=== PATIENT | male | born 1945 ===

== ENCOUNTER 2023-01-09 15:50 | Emergency (ER) | payer OTHER, SELFPAY ==
[2023-01-09] VITALS (22 sets, daily range): BP systolic 109–172; BP diastolic 61–74; PULSE 60–72; RESP 6–27; TEMP 36.4–36.6; O2SAT 95–100; BMI 27.4
--- NOTE | 2023-01-09 15:54 | DI.CT.S_ITS ---
PROCEDURE: CT HEAD/BRAIN WO CON INDICATIONS: Trauma TECHNIQUE: Noncontrast 4.5 mm thick angled axial sections acquired from the foramen magnum to the vertex, with coronal and sagittal reformats. For radiation dose reduction, the following was used: automated exposure control, adjustment of mA and/or kV according to patient size. COMPARISON: [facility], CT, CT CHEST ABD PEL W CON, 01/09/2023, 16:11. [facility], CT, CT CERVICAL SPINE WO CON, 01/09/2023, 16:11. FINDINGS: Image quality: Excellent. CSF spaces: Basal cisterns are patent. No extra-axial fluid collections. The ventricles are symmetric in size and shape. Brain: No intracranial bleeds or masses. There is cerebral volume loss for age, with resultant ventricular and sulcal prominence. There are periventricular and deep white matter chronic small vessel ischemic changes. There is intracranial internal carotid artery atherosclerosis. Skull and face: Calvarium and visualized facial bones appear intact, without suspicious lesions. Sinuses: Visualized sinuses and mastoids are clear. IMPRESSION: No acute intracranial hemorrhage is seen. No acute intracranial process is seen. Dictated by: Deny Moeller M.D. on 01/09/2023 at 15:56 Approved by: Deny Moeller M.D. on 01/09/2023 at 15:57
--- NOTE | 2023-01-09 15:54 | DI.CT.S_ITS ---
PROCEDURE: CT CERVICAL SPINE WO CON INDICATIONS: Trauma TECHNIQUE: Noncontrast 3 mm thick sections acquired from the skull base to the T4 level. Sagittal and coronal reformats were then constructed. For radiation dose reduction, the following was used: automated exposure control, adjustment of mA and/or kV according to patient size. COMPARISON: [facility], CT, CT CHEST ABD PEL W CON, 01/09/2023, 16:11. [facility], CT, CT HEAD/BRAIN WO CON, 01/09/2023, 16:11. FINDINGS: Image quality: This examination is somewhat limited by quantum mottle artifact. Bones: No fractures or dislocations. Visualized superior ribs are intact. Focal degenerative change is seen involving the C1-C2 interface anteriorly. Partially bridging anterior osteophytes are seen at C3-C4. There is moderate to severe disc space narrowing seen at C5-C6 and C6-C7. Endplate irregularity and sclerosis can be seen, which are worst at C5-C6. Posteriorly directed endplate osteophytes are seen at C5-C6 and at C6-C7. Soft tissues: Prevertebral soft tissues are normal in thickness. No paravertebral hematomas. No apical pneumothoraces. Left-sided pacer leads are partially seen. IMPRESSION: Negative for fracture. Cervical spine degenerative changes are seen, which are worst inferiorly. Dictated by: Deny Moeller M.D. on 01/09/2023 at 15:57 Approved by: Deny Moeller M.D. on 01/09/2023 at 15:58
--- NOTE | 2023-01-09 15:54 | DI.CT.S_ITS ---
PROCEDURE: CT CHEST ABD PEL W CON INDICATIONS: Trauma TECHNIQUE: After the administration of intravenous contrast, 5 mm thick sections acquired from the lung apices to the symphysis. 2.5 mm thick coronal and sagittal reformats were acquired. Additional 7 mm thick coronal maximum intensity projection (MIP) reformats acquired through the lungs. Optional 10-minute delayed imaging may be performed from the kidneys to the bladder. For radiation dose reduction, the following was used: automated exposure control, adjustment of mA and/or kV according to patient size. COMPARISON: None. FINDINGS: Image quality: Excellent. CHEST: Lungs: No pulmonary contusions or lacerations. No acute airspace opacities. No pneumothorax or hemothorax. Central and peripheral airways appear patent and normal in caliber. Mediastinum: No mediastinal hematomas. Heart size is enlarged. No pericardial effusion. Thoracic aorta and pulmonary arteries demonstrate normal size and enhancement. No mediastinal or hilar adenopathy. Esophagus is normal in caliber. No hiatal hernia. Chest wall: No rib fractures. No subcutaneous emphysema. No axillary or supraclavicular adenopathy. Thyroid gland is unremarkable. There is a left-sided transvenous pacemaker. There are extensive collateral veins present in the neck and chest from a left arm injection. Findings suggest stenosis or occlusion of the left subclavian or brachiocephalic vein secondary to pacemaker leads. ABDOMEN: Solid organs: Liver is normal in size and enhancement, without lacerations. Numerous incidental tiny liver cysts. Gallbladder contains multiple gallstones. There is focal wall thickening and luminal narrowing suggesting a possible incidental constricting lesion of the gallbladder. 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 Biliary system is non-dilated. Pancreas enhances normally, without transection. Spleen is normal in size and enhancement, without lacerations. No adrenal hematomas. Both kidneys enhance normally, without hydronephrosis or lacerations. Peritoneum and bowel: No free fluid or air. Unenhanced bowel loops demonstrate normal wall thickness and caliber. Nodes and vessels: No retroperitoneal or mesenteric adenopathy. 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 This is likely a chronic finding. Miscellaneous: No ventral hernias. PELVIS: Genitourinary: Moderate to severe prostatomegaly. Mild thickening of the wall of the bladder. Miscellaneous: Mild fat containing left inguinal hernia. No inguinal adenopathy. Bones: Pelvic ring and hip joints appear intact. No vertebral compression fractures. Lumbar degenerative change. IMPRESSION: 1. No evidence of significant sequelae of acute trauma in the chest, abdomen, and pelvis. 2. Cholelithiasis. 3. 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 4. 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 Comment: Findings were discussed with Dr. Keith on 01/09/2023 at 1701 hours Dictated by: Paras Borges M.D. on 01/09/2023 at 17:16 Approved by: Paras Borges M.D. on 01/09/2023 at 17:21
--- NOTE | 2023-01-09 15:54 | ED.GENADULT ---
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 need to have gallbladder Biopsy dressed as well. Expect to be sore for the next couple days. Light activity encouraged no strenuous activity. *Continue to take medications as directed Tylenol 650 mg every 4-6 hours if needed for [id number] pain *Follow up with your primary care provider in 2-3 days or call [phone] *Return to ER if you should have increasing pain dizziness abdominal pain passing out or any new, worsening or concerning symptoms Prescriptions: No Action candesartan 8 mg Tablet 8 mg PO DAILY Rx Instructions: takes AM chlorthalidone 50 mg Tablet 50 mg PO DAILY Rx Instructions: pt takes 1/4 of pill in AM atenolol 25 mg Tablet 25 mg PO DAILY Rx Instructions: takes AM rosuvastatin 40 mg Tablet 30 mg PO DAILY Rx Instructions: takes pm methimazole [Tapazole] 10 mg Tablet 6 mg PO DAILY Rx Instructions: takes PM ezetimibe 10 mg Tablet 10 mg PO DAILY Rx Instructions: takes pm Xarelto 15 mg Tablet 15 mg PO QPM Rx Instructions: must administer with evening meal Stand Alone Forms: Patient Portal/API
[2023-01-09 16:27] LABS: INR 1.2 (0.9-1.3); Prothrombin Time 14.2 SECONDS (10.1-12.7)
[2023-01-09 16:30] LABS: Lactate (Lactic Acid) 1.6 mmol/L (0.7-2.1); PTT Partial Thromboplastin Tim 39 SECONDS (26-36)
[2023-01-09 16:31] LABS: Add Manual Diff / Slide Review NO; Basophils Absolute Auto 0 /uL (0-100); Basophils Percent Auto 0.3 % (0-2); Eosinophils Absolute Auto 100 /uL (0-450); Eosinophils Percent Auto 1.5 % (2-4); Hematocrit 45.7 % (41-53); Hemoglobin 15.4 g/dL (13.5-17.5); Lymphocytes Absolute Auto 1900 /uL (1100-4500); Lymphocytes Percent Auto 29.9 % (25-40); Mean Corpuscular HGB Conc 33.8 % (30-36); Mean Corpuscular Hemoglobin 28.1 PG (26-34); Mean Corpuscular Volume 83.3 fL (80-100); Monocytes Absolute Auto 500 /uL (0-900); Monocytes Percent Auto 8.3 % (3-14); Neutrophils Absolute Auto 3800 /uL (1500-7000); Platelet Count 243 X10^3/uL (150-400); Red Blood Cell Count 5.49 X10^6/uL (4.5-5.9); Red Cell Distribution Width 15.1 % (11.6-14.8); White Blood Cell Count 6.4 X10^3/uL (4.5-11.0)
[2023-01-09 16:32] LABS: Alanine Aminotransferase 53 IU/L (<50); Albumin 4.6 g/dL (3.5-5.0); Albumin Globulin Ratio 1.4 (1.0-2.8); Alkaline Phosphatase 51 U/L (38-126); Aspartate Aminotransferase 42 IU/L (17-59); Bilirubin Total 0.8 mg/dL (0.2-1.3); Blood Urea Nitrogen 17 mg/dL (9-20); Calcium 10.1 mg/dL (8.4-10.2); Carbon Dioxide 32 mmol/L (22-32); Chloride 98 mmol/L (98-107); Estimated Glomerular Filt Rate > 60 mL/min (>60); Ethanol (ETOH) < 10 mg/dL; Globulin 3.4 g/dL (1.7-4.1); Glucose 120 mg/dL (80-110); HEMOLYSIS < 15 (0-50); Lipase 58 U/L (23-300); Potassium 3.1 mmol/L (3.4-5.1); Sodium 139 mmol/L (137-145)
== END 2023-01-09 20:35 | disposition home or self-care (01) ==
PROVIDERS: Emergency Medicine; Emergency Provider Emergency Medicine
DX: S39.91XA Unspecified injury of abdomen, initial encounter (principal); S09.90XA Unspecified injury of head, initial encounter; M54.2 Cervicalgia; I71.019 Dissection of thoracic aorta, unspecified; C23 Malignant neoplasm of gallbladder; V03.90XA Pedestrian on foot injured in collision with car, pick-up truck or van, unspecified whether traffic or nontraffic accident, initial encounter; Z95.0 Presence of cardiac pacemaker
CPT/HCPCS: 36415; 70450; 71260; 72125; 74177; 80053; 80320; 81003; 83605; 83690; 85025; 85610; 85730; 93005; 99284; Q9967